=== PATIENT | female | born 1960 | race Caucasian/White ===

== ENCOUNTER 2017-05-07 19:30 | Outpatient (CLI) | payer BC | END 2017-05-07 19:31 | disposition home or self-care (01) | LOC: SLEEPLAB 19:30 | PROVIDERS: ATTEND Otolaryngology Plastic Surgery within the Head & Neck | DX: G47.33 Obstructive sleep apnea (adult) (pediatric) (principal) | CPT/HCPCS: 95811 ==

== ENCOUNTER 2020-04-12 13:30 | Emergency (ER) | payer BC ==
[2020-04-12 14:15] LABS: #Basophils 0.2 thou/uL (0.0-0.2); #Eosinphils 0.1 thou/uL (0.0-0.7); #Lymphocytes 3.4 thou/uL (1.20-3.40); #Monocytes 0.8 thou/uL (0.11-0.59); #Neutrophils 9.3 thou/uL (1.40-6.50); %Basophils 1.5 % (0.0-1.0); %Eosinophils 0.4 % (0.0-10.0); %Lymphocytes 24.6 % (21.0-51.0); %Monocytes 5.6 % (0.0-10.0); %Neutrophils 67.8 % (42.0-75.0); Hemoglobin 17.8 g/dL (12.0-16.0); Mean Corpuscular HGB CONC 33.9 g/dL (32.0-36.0); Mean Platelet Volume 9.8 fL (7.4-10.4); Platelet Count 327 thou/uL (130-400); RBC Distribution Width 11.5 % (11.5-14.5); Red Blood Cell (RBC) Count 5.24 mill/uL (4.20-5.40); White Blood Cell (WBC) Count 13.7 thou/uL (4.8-10.8)
[2020-04-12 14:17] LABS: Bacteria/HPF None Seen HPF (None Seen); Bilirubin Negative (Negative); Blood, Urine Trace (Negative); Clarity Clear (Clear); Glucose, Urine (Dipstick) Normal (Negative); Ketone, Urine Negative (Negative); Leukocyte Negative Leu/uL (Negative); Nitrite Negative (Negative); Protein, Urine (Dipstick) Negative (Neg-Trace); RBC/HPF 0-3 HPF (0-3); Specific Gravity, Urine 1.004 (1.002-1.036); Squamous Epithelial 0-3 HPF (0-3); Urobilinogen Normal mg/dL (Less than 2); WBC/HPF 0-3 HPF (0-3); pH, Urine 6.5 (5.0-9.0)
[2020-04-12 14:20] LABS: BHCG - Serum Negative (NEGATIVE); Pregs Control Background? CLEAR/WHITE (CLR/WHITE); Pregs Control Bar Appear? YES (CONTROL BAR)
[2020-04-12 14:35] LABS: ALT (SGPT) 24 U/L (8-55); AST (SGOT) 20 U/L (5-34); Albumin 4.8 g/dL (3.5-5.0); Alkaline Phosphatase 77 U/L (40-110); Anion Gap 17 mmol/L (10-20); BUN (Urea Nitrogen) 10 mg/dL (9.8-20.1); Bilirubin, Total 0.5 mg/dL (0.2-1.2); Calc. Creatinine Clearance 0 mL/min (70-130); Calcium 9.8 mg/dL (7.8-10.44); Carbon Dioxide 27 mmol/L (22-29); Chloride 103 mmol/L (98-107); Estimated GFR-MDRD 66; Globulin 3.6 g/dL (2.4-3.5); Glucose 101 mg/dL (70-105); Protein, Total 8.4 g/dL (6.0-8.3); Sodium 143 mmol/L (136-145)
--- NOTE | 2020-04-12 14:44 | ULT ---
Exam: Pelvic ultrasound HISTORY: Previously treated for urinary tract infection. Patient began having vaginal bleeding which started on Saturday. Postmenopausal female. COMPARISON: None TECHNIQUE: Multiple grayscale and color Doppler images were obtained in a transvaginal pelvic ultraso und. FINDINGS: CERVIX: Small nabothian cyst in the cervix. UTERUS: Mildly prominent size for postmenopausal female patient measuring 9.2 cm x 5 cm x 6.4 cm. The re is a heterogeneous mass seen in the body of the uterus which measures 3.4 cm in greatest dimension which does abut the endometrial canal. ENDOMETRIAL STRIPE: 7 mm which is thickened for a postmenopausal female patient. No fluid or fluid co llection is seen in the endometrial canal. No free fluid is present. RIGHT OVARY: Not visualized. LEFT OVARY:Not visualized. IMPRESSION: 1. Heterogeneous mass body of the uterus which may represent a uterine fibroid measuring 3.4 cm. 2. Thickening of the endometrial stripe which is abnormal in a postmenopausal female patient. No flui d or fluid collection is seen in the endometrial canal. [employer] consultation is recommended on a nonemergent basis.
== END 2020-04-12 15:15 | disposition home or self-care (01) ==
LOC: ERS 13:30
DX: N93.9 Abnormal uterine and vaginal bleeding, unspecified (principal); E11.9 Type 2 diabetes mellitus without complications; E78.5 Hyperlipidemia, unspecified; E78.00 Pure hypercholesterolemia, unspecified; Z79.899 Other long term (current) drug therapy
CPT/HCPCS: 36415; 76856; 80053; 81003; 81015; 84703; 85025; 99406